=== PATIENT | male | born 1995 | race Caucasian/White ===

== ENCOUNTER 2022-12-31 23:28 | Emergency (ER) | payer OTHER ==
[2022-12-31 23:39] VITALS: BP 131/76; PULSE 85; RESP 20; TEMP 98.6; BMI 25.0
[2023-01-01] MEDS ORDERED: DEXAMETHASONE SOD PHOSPHATE 10 MG/1 ML VIAL IM ONE (00:57)
[2023-01-01] MEDS ORDERED: DEXAMETHASONE SOD PHOSPHATE 10 MG/1 ML VIAL ONE (01:01)
== END 2023-01-01 01:44 | disposition home or self-care (01) ==
LOC: JER 23:28
PROC: 3E023GC Introduction of Other Therapeutic Substance into Muscle, Percutaneous Approach (ICD-10-PCS; principal; 2022-12-31)
DX: M65.232 Calcific tendinitis, left forearm (principal); M25.522 Pain in left elbow
CPT/HCPCS: 73070-TC-RT-FY; 99284-25; J1100